=== PATIENT | female | born 2005 | race Two or more races ===

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

== ENCOUNTER 2025-04-17 13:33 | Emergency (ER) | payer MEDICAID ==
[~2025-04-17] VITALS: Ht 167.6 cm; Wt 154.2 kg
--- NOTE | 2025-04-17 14:26 | ED.PDOC ---
Eye-HPI HPI Comments A 20 YEAR-OLD FEMALE PRESENTS TO THE ED WITH A CHIEF COMPLAINT OF RIGHT EAR PAIN OF X5 DAYS AGO. PATIENT REPORTS THAT RIGHT SIDED EAR PAIN WITH WORSENING PAIN THROUGHOUT THE RIGHT SIDE OF FACE. PT ALSO C/O THROAT PAIN AND DIFFICULTY SWALLOWING. PATIENT HAS NO FURTHER COMPLAINTS AT THIS TIME AND OTHERWISE DENIES FURTHER ASSOCIATED SYMPTOMS OF N/V, FEVER, CHILLS, OR DYSURIA. PATIENT IS ALERT, ORIENTED X 4, AND HAS STEADY GAIT. Chief Complaint: Earache Time Seen by MD: 14:15 Reviewed Notes: Nurses Notes, Medications, Allergies Allergies: Coded Allergies: NO KNOWN ALLERGIES (Unverified , 11/19/24) Home Meds Active Scripts Ibuprofen (Ibuprofen) 800 Mg Tab, 1 TAB PO TID, #30 TAB Prov:MADDI MARCUM 04/17/25 Amoxicillin & Pot Clavulanate (AUGMENTIN TABLET) 875 Mg Tb, 875 MG PO BID, #20 TAB Prov:MADDI MARCUM 04/17/25 Information Source: Patient Mode of Arrival: Ambulatory Timing: Days (5) Duration: Since onset Quality: Pain, Red Lids: Normal Conjunctiva: Normal Cornea: Normal Pupils: Normal EOM: Normal Fundus: Normal Slit lamp exam: Normal Anterior chamber: Normal Mouth Location: Pharynx Mouth: Normal ENT Ear Exam: Red, Bulging, Dull Sinuses: Normal Oropharynx: Normal Onset: Spontaneous Throat Exposed to: None Last Tetanus: UTD Associated signs and symptoms: Sore Throat, Ear Pain (RIGHT ), None (RIGHT SIDED FACE PAIN ) Past Medical History PAST MEDICAL HISTORY: Denies Surgical History: Denies all surgeries FIVE ROLL REFINER BATCH MIXER History: No Pertinent FIVE ROLL REFINER BATCH MIXER History Family History Family History: Reviewed,noncontributory to illness, No family hx of Cancer, No family hx of DM, No family hx of Heart stanley, No family hx of HTN, No family hx ofKidney stanley, No family hx of Liver stanley, No family hx of Lung stanley, No family hx of Stroke Social History Smoker: Non-Smoker Alcohol: Denies ETOH Use Drugs: Denies Drug Use Lives In: Home Constitutional: denies: chills, diaphoresis, fatigue, fever, malaise, sweats, weakness, others EENTM: reports: ear pain (RIGHT ), ear ringing, throat pain, throat swelling, others (RIGHT FACE PAIN ); denies: blurred vision, double vision, ear bleeding, ear discharge, ear drainage, eye pain, eye redness, hearing loss, mouth pain, mouth swelling, nasal discharge, nose bleeding, nose congestion, nose pain, photophobia, tearing, voice changes Respiratory: denies: cough, hemoptysis, orthopnea, SOB at rest, shortness of breath, SOB with excertion, stridor, wheezing, others Cardiovascular: denies: chest pain, dizzy spells, diaphoresis, Dyspnea on exertion, edema, irregular heart beat, left arm pain, lightheadedness, palpitations, PND, syncope, others Gastrointestinal: denies: abdomen distended, abdominal pain, blood streaked bowels, constipated, diarrhea, dysphagia, difficulty swallowing, hematemesis, m matthew, nausea, poor appetite, poor fluid intake, rectal bleeding, rectal pain, vomiting, others Genitourinary: denies: abnormal vagina bleeding, burning, dyspareunia, dysuria, flank pain, frequency, hematuria, incontinence, pain, , vagina discharge, urgency, others Neurological: denies: dizziness, fainting, headache, left sided numbness, left sided weakness, numbness, paresthesia, pre-existing deficit, right sided numbness, right sided weakness, seizure, speech problems, tingling, tremors, weakness, others Musculoskeletal: denies: back pain, gout, joint pain, joint swelling, muscle pain, muscle stiffness, neck pain, others Integumetry: denies: bruises, change in color, change in hair/nails, dryness, laceration, lesions, lumps, rash, wounds, others Allergic/Immunocompromised: denies: Difficulty Healing, Frequent Infections, Hives, Itching, others Hematologic/Lymphatic: denies: anemia, blood clots, easy bleeding, easy bruising, swollen glands, others Endocrine: denies: excessive hunger, excessive sweating, excessive thirst, excessive urination, flushing, intolerance to cold, intolerance to heat, unexpla ined weight gain, unexplained weight loss, others Psychiatric: denies: anxiety, bipolar disorder, depression, hopeless, panic disorder, schizophrenia, sleepless, suicidal, others All Other Systems: Reviewed and Negative Physical Exam General Appearance: No Apparent Distress, Obese HEENT: PERRL/EOMI, Pharyngeal Erythema (TONSILLAR SWELLING, NO EXUDATES. ), TM Abnormal (R) (ERYTHEMA AND DULL WITH EFFUSION OF RIGHT TM, NO BLEEDING AND FB. ) Neck: Full Range of Motion, Non-Tender, Normal, Normal Inspection Respiratory: Chest Non-Tender, Lungs Clear, No Accessory Muscle Use, No Respiratory Distress, Normal Breath Sounds Cardiovascular: No Edema, No JVD, No Murmur, No Gallop, Normal Peripheral Pulses, Regular Rate/Rhythm Breast Exam: Deferred Gastrointestinal: No Organomegaly, Non Tender, No Pulsatile Mass, Normal Bowel Sounds, Soft Genitalia: Deferred Pelvic: Deferred Rectal: Deferred Extremities: No calf tenderness, Normal capillary refill, Normal inspection, Normal range of motion, Non-tender, No pedal edema Musculoskeletal : Apperance: Normal Neurologic: Alert, car worker II-XII nml as Tested, No Motor Deficits, Normal Affect, Normal Mood, No Sensory Deficits Cerebellar Function: Normal Reflexes: Normal Skin: Dry, Normal Color, Warm Peripheral Pulses: 2+ carotid (R), 2+ carotid (L) Lymphatic: No Adenopathy Was a procedure done? Was a procedure done?: No EENT DIFF Eye: N/A Ear: Abrasion, Otitis Externa, Otitis Media, Other (INFECTION) Sore Throat: Pharyngitis, Streptococcal, Viral Pharyngitis X-Ray, Labs, Meds, VS Vital Signs Date Time Temp Pulse Resp B/P (MAP) Pulse Ox O2 Delivery O2 Flow Rate FiO2 04/17/25 14:33 100 17 95 Room Air 04/17/25 14:33 98.4 100 17 122/76 (91) 95 98.4 04/17/25 13:46 98.4 118 20 135/97 (110) 94 98.4 Current Medications Medications (Trade) Dose Ordered Sig/Roxana Route Start Time Stop Time Status Last Admin Ceftriaxone Sodium (Rocephin) 1,000 mg ONCE ONCE IM 04/17/25 14:30 04/17/25 14:31 DC 04/17/25 14:30 Ibuprofen (Motrin Tablet) 800 mg ONCE ONCE PO 04/17/25 14:30 04/17/25 14:31 DC 04/17/25 14:30 X-Ray, Labs, Meds, VS Comment EXTERNAL MEDICAL RECORDS: NONE INDEPENDENT HISTORIANS: NONE SOCIAL DETERMINANTS OF HEALTH: NONE LABS ORDERED: NONE REVIEWED AND INTERPRETED RESULTS: NONE IMAGING ORDERED: NONE TREATMENTS ORDERED: ROCEPHIN AND MOTRIN PATIENT'S CASE AND RESULTS HAVE BEEN DISCUSSED WITH THE ED ATTENDING PHYSICIAN AND THEY AGREE WITH MY PLAN OF CARE. RX: AUGMENTIN AND IBUPROFEN I HAVE DISCUSSED IMAGING AND LAB RESULTS WITH THE PATIENT AND HAVE INSTRUCTED THE PATIENT TO FOLLOW UP WITH THEIR PCP IN 1-2 DAYS. THE PATIENT FULLY UNDERSTANDS THEIR RESULTS AND ARE AWARE THEY NEED TO FOLLOW UP WITH THEIR PCP FOR FURTHER EVALUATION IF THEIR SYMPTOMS PERSIST. Images Reviewed?: Images reviewed and evaluated by me Time of 1ST Reevaluation: 15:07 Reevaluation 1ST: Improved Patient Education/Counseling: Diagnosis, Treatment, Need For Follow Up Family Education/Counseling: Diagnosis, Treatment, Need For Follow Up Medical Screening: No EMC Exist At This Time SEPSIS Sepsis Screen Date sepsis recognized/suspect: Apr 17, 2025 Time Sepsis recognized/suspect: 1346 Recent Procedure: No On Antibiotic Therapy: No Respiratory Rate >20: No Heart Rate >90: Yes Temp<36 C (96.8 F) or >38.3 C: No SBP <90 or MAP <65 mmHG: No New Acute Mental Status Change: No Is the patient on CPAP, BIPAP,: No Vital Signs Date Time Temp Pulse Resp B/P (MAP) Pulse Ox O2 Delivery O2 Flow Rate FiO2 04/17/25 14:33 100 17 95 Room Air 04/17/25 14:33 98.4 100 17 122/76 (91) 95 98.4 04/17/25 13:46 98.4 118 20 135/97 (110) 94 98.4 Medications Medications Dose Ordered Sig/Roxana Route Start Time Stop Time Status Last Admin Dose Admin Ceftriaxone Sodium 1,000 mg ONCE ONCE IM 04/17/25 14:30 04/17/25 14:31 DC 04/17/25 14:30 Ibuprofen 800 mg ONCE ONCE PO 04/17/25 14:30 04/17/25 14:31 DC 04/17/25 14:30 Departure 1 Departure Time of Disposition: 15:07 Impression: Primary Impression: Acute otitis media with effusion of right ear Additional Impression: Acute erythematous tonsillitis Disposition: HOME / SELF CARE / HOMELESS Condition: Stable Additional Instructions: FOLLOW-UP WITH PCP IN 1 TO 2 DAYS. TAKE MEDICATIONS PRESCRIBED. RETURN TO ED FOR ANY NEW OR WORSENING SYMPTOMS. e-Prescriptions Ibuprofen (Ibuprofen) 800 Mg Tab 1 TAB PO TID, #30 TAB Prov: TRIXIE,YINXIA PA 04/17/25 Amoxicillin & Pot Clavulanate (AUGMENTIN TABLET) 875 Mg Tb 875 MG PO BID, #20 TAB Prov: MADDI MARCUM 04/17/25 Discharged With: Self Critical Care Note Critical Care Time?: No Stability Stability form required: No Heart Score Heart Score: Heart Score Response (Comments) Value History N/A 0 EKG N/A 0 Age N/A 0 Risk Factors N/A 0 Troponin N/A 0 Total 0 I personally scribed for MADDI MARCUM ([email or web address]) on 04/17/25 at 14:25. Electronically submitted by Kalli Wilkins [email or web address]). I personally scribed for MADDI MARCUM ([email or web address]) on 04/17/25 at 14:26. Electronically submitted by Kalli Wilkins ([email or web address]). MADDI MARCUM Apr 17, 2025 14:25
[2025-04-17] MEDS: cefTRIAXone SOD 1,000 MG VL IM ONE (14:30)
[2025-04-17] MEDS: IBUPROFEN 800 MG TAB PO ONE (14:30)
[2025-04-17 14:33] VITALS: BP 122/76; PULSE 100; RESP 17; TEMP 98.4; O2SAT 95
[2025-04-17] MEDS ORDERED: IBUP-1456 PO (14:59)
[2025-04-17] MEDS ORDERED: AUG875T PO (14:59)
== END 2025-04-17 15:18 | disposition home or self-care (01) ==
LOC: ER 13:33
DX: H65.191 Other acute nonsuppurative otitis media, right ear (principal); J03.90 Acute tonsillitis, unspecified; R13.10 Dysphagia, unspecified
CPT/HCPCS: 96372; 99283; J0696